=== PATIENT | male | born 1985 | race Caucasian/White ===

== ENCOUNTER 2022-07-12 06:55 | Outpatient (CLI) | payer BC, SELFPAY ==
--- NOTE | 2022-07-12 07:15 | MR_ITS ---
WS: [id number] MRI LEFT SHOULDER HISTORY: M75.41 - Impingement syndrome of right shoulder COMPARISON: None available. TECHNIQUE: Multiplanar sequences of the shoulder joint are submitted. Mild AC joint arthritis. Small osteophytes with slight encroachment upon the supraspinatus myotendino us insertion. No significant subacromial impingement. No os acromion. Biceps tendon in normal positio n. No rotator cuff muscle atrophy or edema. No rotator cuff tears. Very mild narrowing of the glenohumer al joint. Minimal thickening of the axillary pouch. May represent early changes of adhesive capsuliti s. No adjacent synovitis. No labral tear. MR/MR shoulder LT wo con* [id number] IMPRESSION: 1. Mild AC joint osteoarthritis. Minimal encroachment upon the myotendinous in sertion of the supraspinatus. 2. No rotator cuff tear. 3. Very minimal thickening of the axillary recess without synovitis. May repre sent very early changes of adhesive capsulitis.
== END 2022-07-12 06:56 | disposition home or self-care (01) ==
LOC: RAD 06:56
PROVIDERS: PCP Registered Nurse; Visit Provider Registered Nurse
DX: M19.012 Primary osteoarthritis, left shoulder (principal)
CPT/HCPCS: 73221

== ENCOUNTER → 2022-10-04 10:00 | Outpatient (BNVA) | payer BC, SELFPAY | PROVIDERS: PCP Registered Nurse; Visit Provider Registered Nurse | DX: E78.1 Pure hyperglyceridemia (principal); I10 Essential (primary) hypertension; E78.00 Pure hypercholesterolemia, unspecified | CPT/HCPCS: 80053; 80061; 85025 ==

== ENCOUNTER → 2023-06-09 09:27 | Outpatient (BNVA) | payer BC, SELFPAY | PROVIDERS: PCP Registered Nurse; Visit Provider Emergency Medicine | DX: J02.9 Acute pharyngitis, unspecified (principal); J35.8 Other chronic diseases of tonsils and adenoids | CPT/HCPCS: 87071; 87880 ==

== ENCOUNTER → 2023-12-16 09:18 | Outpatient (BNVA) | payer BC, SELFPAY | PROVIDERS: PCP Registered Nurse; Visit Provider Registered Nurse | DX: I10 Essential (primary) hypertension (principal); E78.00 Pure hypercholesterolemia, unspecified | CPT/HCPCS: 80053; 80061 ==

== ENCOUNTER → 2024-02-17 10:55 | Outpatient (BNVA) | payer BC, SELFPAY | PROVIDERS: PCP Registered Nurse; Visit Provider Nurse Practitioner Family | DX: M79.672 Pain in left foot (principal) | CPT/HCPCS: 84550 ==

== ENCOUNTER 2024-02-19 08:03 | Outpatient (CLI) | payer BC, SELFPAY ==
--- NOTE | 2024-02-19 08:05 | XRR_ITS ---
PROCEDURE INFORMATION: Exam: XR Left Foot Exam date and time: 02/19/2024 8:08 AM Age: 39 years old Clinical indication: Pain; Foot; Left; Additional info: M79.672 - pain in left foot TECHNIQUE: Imaging protocol: Radiologic exam of the left foot. Views: 3 or more views. COMPARISON: No relevant prior studies available. FINDINGS: Bones/joints: Normal. Soft tissues: Normal. XR/XR foot LT min 3V* [id number] IMPRESSION: No acute findings.
== END 2024-02-19 08:04 | disposition home or self-care (01) ==
LOC: RAD 08:04
PROVIDERS: PCP Registered Nurse; Visit Provider Nurse Practitioner Family
DX: M79.672 Pain in left foot (principal)
CPT/HCPCS: 73630

== ENCOUNTER 2024-11-17 11:53 | Outpatient (CLI) | payer BC, SELFPAY ==
--- NOTE | 2024-11-17 11:59 | XRR_ITS ---
PROCEDURE INFORMATION: Exam: XR Bilateral Sacroiliac Joints Exam date and time: 11/17/2024 12:04 PM Age: 39 years old Clinical indication: Pain; Other: Sciatica, right side; Additional info: M54.31 - sciatica, right side TECHNIQUE: Imaging protocol: XR bilateral XR of the sacroiliac joints. Views: 3 or more views. COMPARISON: No relevant prior studies available. FINDINGS: Bones/joints: Normal. No acute fracture. Soft tissues: Normal. XR/XR sacroiliac ts 3V [id number] IMPRESSION: No acute findings.
== END 2024-11-17 11:54 | disposition home or self-care (01) ==
PROVIDERS: PCP Registered Nurse; Visit Provider Registered Nurse
DX: M54.31 Sciatica, right side (principal)
CPT/HCPCS: 72202

== ENCOUNTER 2025-01-07 06:30 | Outpatient (RCR) | payer BC, SELFPAY | END 2025-02-06 23:59 | disposition home or self-care (01) | LOC: WPT 06:30 | PROVIDERS: PCP Registered Nurse; Visit Provider Registered Nurse | DX: M54.31 Sciatica, right side (principal) | CPT/HCPCS: 97110; 97112; 97161; 97530 ==

== ENCOUNTER 2025-03-23 07:05 | Outpatient (CLI) | payer BC, SELFPAY ==
--- NOTE | 2025-03-23 07:15 | MR_ITS ---
WS: [id number] MRI LUMBAR SPINE NONCONTRAST HISTORY: M51.16 - Intervertebral disc disorders with radiculopathy... COMPARISON: None available. TECHNIQUE: Sagittal and axial multisequence imaging is submitted. Normal lumbar alignment with no compression fractures or marrow edema. Disc desiccation from L3-4 through L5-S1. Chronic endplate changes at L4 and L5. No acute marrow edema or fracture. Conus terminates normally at L1. L1-L2: Moderate size central disc protrusion. Very slight contact on the LEFT traversing L2 nerve root. No stenosis. L2-L3: Mild facet arthritis. No stenosis. L3-L4: Mild annular disc bulge with encroachment upon the traversing L4 nerve roots in the subarticular recesses. Mild ligamentum flavum and facet arthritis. No foraminal stenosis. Mild subarticular recess narrowing. L4-L5: Mild annular disc bulge with shallow bilateral foraminal disc protrusions, LEFT greater than RIGHT. This contacts the traversing L5 nerve roots greater on the LEFT. Mild encroachment upon the exiting L4 nerve roots. Mild central, subarticular recess and foraminal stenosis. L5-S1: Large RIGHT paracentral disc protrusion extends inferiorly into the subarticular recess with significant contact on the RIGHT S1 nerve root and displacement. Thecal sac is being deformed by the disc protrusion. There is additional osteophytosis and disc bulging. Disc osteophyte complexes extend into the foramina contacting the exiting L5 nerve roots with moderate stenosis. Paravertebral soft tissues are negative. MR/MR lumbar spine wo con* [id number] IMPRESSION: 1. Large RIGHT paracentral disc protrusion extends into the subarticular reces s with significant contact on the RIGHT S1 nerve root. 2. L5-S1: Moderate bilateral foraminal stenosis due to disc osteophyte complex es contacting the exiting L5 nerve roots. 3. L4-5: Bilateral shallow foraminal disc protrusions LEFT greater than RIGHT. There is disc contact on the exiting and traversing nerve roots. Combination o f findings resulting in mild central, subarticular recess and foraminal stenosi s. 4. L3-4: Mild disc encroachment upon the traversing L4 nerve roots. Mild subar ticular recess stenosis. 5. L1-2: Moderate size central disc protrusion with slight contact on the LEFT traversing L2 nerve root.
== END 2025-03-23 07:06 | disposition home or self-care (01) ==
PROVIDERS: PCP Registered Nurse; Visit Provider Registered Nurse
DX: M51.16 Intervertebral disc disorders with radiculopathy, lumbar region (principal); M51.26 Other intervertebral disc displacement, lumbar region; M47.816 Spondylosis without myelopathy or radiculopathy, lumbar region; M48.07 Spinal stenosis, lumbosacral region; M48.061 Spinal stenosis, lumbar region without neurogenic claudication
CPT/HCPCS: 72148